=== PATIENT | female | born 1995 | race American Indian/Alaskan Native ===

== ENCOUNTER 2017-10-02 17:26 | Inpatient (IN) | payer OTHER ==
[2017-10-02 17:40] VITALS: BMI 29.7
--- NOTE | 2017-10-02 18:01 | OBHP ---
Datetime: 10/02/2017 17:56 IP Adm Impression: Term, intrauterine IP Chief Complaint Other: vaginal pain Admit Comment, IP Provider: at 38+weeks came with c/o vaginal pain started in am,no hedache or blurry vision, no vb, lof+fm obhx primi pmh den med pnv all nkda psh den soch de ve /-2 a/p at 38+weeks vaginal pain r/o pih pih work up cnt meet and efm bp monitior npo/ivf cont close observa Pelvic Type - PN: Adequate Extremities - PN: Normal Abdomen - PN: Normal Back - PN: Normal Breast - PN: Normal Lungs - PN: Normal Heart - PN: Normal Thyroid - PN: Normal Neurologic - PN: Normal HEENT - PN: Normal General - PN: Normal FHR - Baseline A Provider: 130 Contraction Comments Provider: irrg Vital Signs Provider: Reviewed; Within Normal Limits NICHD Variability Prov Fetus A: Moderate 6-25bpm NICHD Accel Fetus A IP Provider: 15X15 FHR Category Provider Fetus A: Category I Dilatation, Provider: 1 Effacement, Provider: 60 Station, Provider: -3 Genitourinary Exam: Normal DTRs - PN: Normal
[2017-10-02] MEDS: Lactated Ringer's 1,000 ML IV SCH (18:04)
[2017-10-02 18:19] LABS: HEMOGLOBIN 8.9 g/dL (11.0-16.0); MEAN CELL VOLUME 76.5 fL (81.0-99.0); MEAN CORPUSCULAR HEMOGLOBIN 24.8 pg (27.0-31.0); MEAN CORPUSCULAR HGB CONC 32.5 g/dL (33.0-37.0); MEAN PLATELET VOLUME 9.7 fL (7.2-11.7); RBC 3.57 Mil/uL (3.80-5.20); RED CELL DISTRIBUTION WIDTH 16.6 % (11.5-14.5); WHITE BLOOD COUNT 9.9 K/uL (4.8-10.8)
[2017-10-02 18:26] LABS: PROTHROMBIN TIME 10.6 SECONDS (9.7-12.2)
[2017-10-02 18:26] LABS: SQUAMOUS EPITHIAL 7 /hpf (0-5); URINE BACTERIA FEW (<OCC); URINE BILIRUBIN NEGATIVE (NEGATIVE); URINE BLOOD NEGATIVE (NEGATIVE); URINE CLARITY Hazy (Clear); URINE COLOR Yellow (YELLOW); URINE GLUCOSE (UA) NORMAL (Normal); URINE LEUKOCYTE ESTERASE 3+ Leu/uL (Negative); URINE PROTEIN 1+ mg/dL (NEGATIVE); URINE UROBILINOGEN NORMAL mg/dL (0.2-1.0)
[2017-10-02 18:52] LABS: ALB/GLOB RATIO 1.1 (1.0-2.1); ALBUMIN 3.5 g/dL (3.5-5.0); ALT/SGPT 17 U/L (9-52); AST/SGOT 28 U/L (14-36); BILIRUBIN,DIRECT 0.4 mg/dL (0.0-0.4); BLOOD UREA NITROGEN 5 mg/dL (7-17); CALCIUM 8.8 mg/dl (8.6-10.4); GFR AFRICAN-AMERICAN > 60; GFR NON-AFRICAN AMERICAN > 60
--- NOTE | 2017-10-02 19:03 | OBADHP ---
Datetime: 10/02/2017 17:56 IP Chief Complaint Other: vaginal pain Admit Comment, IP Provider: at 38+weeks came with c/o vaginal pain started in am,no hedache or blurry vision, no vb, lof+fm obhx primi pmh den med pnv all nkda psh den soch de ve /-2 a/p at 38+weeks vaginal pain r/o pih pih work up cnt meet and efm bp monitior npo/ivf cont close observa blood work anemia ua 1+pr plan admit to l_d npo/ivf labs pain manag cervidil cont meet and efm anticipate Pelvic Type - PN: Adequate Extremities - PN: Normal Abdomen - PN: Normal Back - PN: Normal Breast - PN: Normal Lungs - PN: Normal Heart - PN: Normal Thyroid - PN: Normal Neurologic - PN: Normal HEENT - PN: Normal General - PN: Normal FHR - Baseline A Provider: 130 Contraction Comments Provider: irrg IP Hx Assessment: The History has been Reviewed and is Current Vital Signs Provider: Reviewed; Within Normal Limits NICHD Variability Prov Fetus A: Moderate 6-25bpm NICHD Accel Fetus A IP Provider: [id number] FHR Category Provider Fetus A: Category I Dilatation, Provider: 1 Effacement, Provider: 60 Station, Provider: -3 Genitourinary Exam: Normal DTRs - PN: Normal IP Adm Impression: Term, intrauterine IP Admit Plan: Admit to unit; Initiate labor induction protocol
--- NOTE | 2017-10-02 20:14 | OBPN ---
Datetime: 10/02/2017 20:11 IP Procedures: Sterile Vag Exam IP Progress Plan: Cervical Ripening FHR - Baseline A Provider: 120 IP Progress Note Comment: pt was examined at bed side ve 1/60/-3 cervidil placed r/a/b disc Vital Signs Provider: Reviewed; Within Normal Limits NICHD Accel Fetus A IP Provider: 15X15 FHR Category Provider Fetus A: Category I NICHD Variability Prov Fetus A: Moderate 6-25bpm Dilatation, Provider: 1 Effacement, Provider: 60 Station, Provider: -3 Datetime: 10/02/2017 17:56 Contraction Comments Provider: irrg
[2017-10-03] MEDS ORDERED: Nalbuphine 20 mg/ml Inj (1 ml) ONE ×2 (00:24→06:34)
[2017-10-03] MEDS: Nalbuphine 20 mg/ml Inj (1 ml) IVP PRN ×2 (00:29→06:41)
[2017-10-03] MEDS ORDERED: Nalbuphine 20 mg/ml Inj (1 ml) IVP PRN (06:45)
[2017-10-03] MEDS ORDERED: Oxytocin 30 UNIT 30 UNITS/500 ML BAG IV PRN (09:54)
[2017-10-03] MEDS ORDERED: Oxytocin 30 UNIT 30 UNITS/500 ML BAG IV ONE (09:58)
[2017-10-03] MEDS: Lactated Ringer's 1,000 ML IV SCH ×2 (09:59→14:02)
--- NOTE | 2017-10-03 10:01 | OBPN ---
Datetime: 10/03/2017 09:56 IP Progress Impression: Gest. HTN/PreEclampsia/Eclampsia IP Progress Plan: Induction Membranes, Provider: Intact FHR - Baseline A Provider: 120 Presentation-Admit: Vertex IP Progress Note Comment: Pt seen @8am - no c/o h/a, scotomata, va disturbances, ruq pain/midpepig p ain. +crampimng 12/18. denies srom i: preeclamp 38.5 wk p: cervidel removed pt seen again @ 9:50 states pain is very mild 1-2/10 p: begin pit. d/w pt. Dilatation, Provider: 2-3 Effacement, Provider: 50 Station, Provider: -2 NICHD Decel Fetus A IP Provider: None
[2017-10-03] MEDS ORDERED: Bupivacaine HCl/FentaNYL Cit 100 ML EPI ONE ×2 (13:14→20:20)
--- NOTE | 2017-10-03 18:58 | OBPN ---
Datetime: 10/03/2017 18:40 IP Progress Plan: Induction Membranes, Provider: Ruptured Amniotic Fluid Color, Provider: Clear FHR - Baseline A Provider: 120 IP Progress Note Comment: s: comfortable /w epidural; no c/o pit @ 14mU p: arom, clear Vital Signs Provider: Reviewed NICHD Accel Fetus A IP Provider: [id number] FHR Category Provider Fetus A: Category I NICHD Variability Prov Fetus A: Moderate 6-25bpm NICHD Decel Fetus A IP Provider: None (Annotations: Data stored by CPN on behalf of user)
--- NOTE | 2017-10-03 21:02 | OBPN ---
Datetime: 10/03/2017 20:43 IP Progress Plan: Induction FHR - Baseline A Provider: 130 Presentation-Admit: Vertex IP Progress Note Comment: s: no c/o i induction for mild preeclampsia p: continue pitocin Vital Signs Provider: Reviewed NICHD Accel Fetus A IP Provider: [id number] FHR Category Provider Fetus A: Category I NICHD Variability Prov Fetus A: Moderate 6-25bpm Dilatation, Provider: 4 Effacement, Provider: 80-90 Station, Provider: -2 NICHD Decel Fetus A IP Provider: None (Annotations: Data stored by CPN on behalf of user)
[2017-10-03] MEDS ORDERED: Lidocaine 2% Inj (20ml) ONE (23:02)
--- NOTE | 2017-10-04 00:41 | OBDS ---
DELIVERY PERSONNEL Delivery Doctor: Melly Saenz MD Certified Appliance Service Technician: Holly Tovar RN Anesthesiologist: Dr Vaughn MATERNAL INFORMATION Delivery Anesthesia: Epidural Estimated Blood Loss (ml): 300 Provider Comments: ap dx: induction for preeclampsia @ 38.5wks pp dx: same proced: ; repair of 2nd degree vag lacerationw with 2-0 chromic and 2-0 vicryl ob: orossetos anesth: epidural findings: viable male 7lb7oz; 9_9 remained in br w/ pt ebl 300cc LABOR SUMMARY EDC: 10/12/2017 00:00 No. Babies in Womb: 1 Attempted: No LABOR INFORMATION Reason for Induction: Gest. HTN/PreEclampsia/Eclampsia Onset of Labor: 10/03/2017 08:09 Complete Dilatation: 10/03/2017 22:30 Cervical Ripening Agents: Cervidil (Annotations: PLACED INTRAVAGINALLY BY DR BRYANT) Oxytocin: Induction Group B Beta Strep: Negative Steroids Given: None Reason Steroids Not Administered: Not Applicable MEMBRANES Membranes Rupture Method: Artificial Rupture of Membranes: 10/03/2017 18:35 Length of Rupture (hrs): 5.58 Amniotic Fluid Color: Clear Amniotic Fluid Amount: Small Amniotic Fluid Odor: None STAGES OF LABOR Stage 1 hrs: 14 Stage 1 min: 21 Stage 2 hrs: 1 Stage 2 min: 40 Stage 3 hrs: 0 Stage 3 min: 6 Total Time in Labor hrs: 16 Total Time in Labor min: 7 VAGINAL DELIVERY Episiotomy: None Laceration Extension: Second Degree Laceration Type: Vaginal Laceration Repair: Yes Laceration Repair Note: repair of 2nd degree vag lacerationw with 2-0 chromic and 2-0 vicry Initial Vag Sponge Count: 11 Final Vag Sponge Count: 11 Initial Vag Sharps Count: 2 Final Vag Sharps Count: 2 Sponge Count Correct: Yes Sharps Count Correct: Yes BABY A INFORMATION Delivery Date/Time: 10/04/2017 00:10 Method of Delivery: Vaginal Born in Route : No : N/A Forceps: N/A Vacuum Extraction: N/A Shoulder Dystocia : No SHOULDER DYSTOCIA BABY A Delivery Date/Time: 10/04/2017 00:10 PRESENTATION/POSITION BABY A Presentation: Cephalic Cephalic Presentation: Vertex Vertex Position: Left Occipital Anterior Breech Presentation: N/A PLACENTA INFORMATION BABY A Placenta Delivery Time : 10/04/2017 00:16 Placenta Method of Delivery: Expressed Placenta Status: Delivered SCORES BABY A Heart Rate 1 min: >100 bpm Resp Effort 1 min: Good Cry Reflex Irritability 1 min: Cough or Sneeze or Pulls Away Muscle Tone 1 min: Active Motion Color 1 min: Body Caney, Extremities Blue SCORE 1 MIN: 9 Heart Rate 5 min: >100 bpm Resp Effort 5 min: Good Cry Reflex Irritability 5 min: Cough or Sneeze or Pulls Away Muscle Tone 5 min: Active Motion Color 5 min: Body Caney, Extremities Blue Resuscitation Effort 5 min: N/A SCORE 5 MIN: 9 INFANT INFORMATION BABY A Gestational Age at Delivery: 38.5 Gestational Status: Term Infant Outcome : Liveborn Infant Condition : Stable Infant Sex: Male IDENTIFICATION/MEDS BABY A ID Band Number: [id number] ID Band Location: Left Leg; Left Arm Sensor Applied: Yes Sensor Number: [id number] Sensor Location : Cord Clamp WEIGHT/LENGTH BABY A Infant Birthweight (gms): 3365 Infant Weight (lb): 7 Weight (oz): 7 Infant Length Inches: 19.00 Length cms: 48.3 CORD INFORMATION BABY A No. Cord Vessels: 3 Nuchal Cord : N/A Cord Blood Taken: Yes Suction: Mouth; Nose
[2017-10-04] MEDS ORDERED: Oxytocin 30 UNIT 30 UNITS/500 ML BAG IV SCH (01:00)
[2017-10-04] MEDS: Oxycodone/Acetaminophen 5/325 mg Tab PO PRN ×2 (03:40→11:24)
--- NOTE | 2017-10-04 08:59 | OBPPN ---
Datetime: 10/04/2017 07:20 PP Pain Prov: Within normal limits PP Nausea Prov: Denies PP Flatus Prov: No PP BM Prov: No PP Breasts Prov: Normal PP Heart Prov: Normal PP Lungs Prov: Normal PP Abdomen/Uterus Prov: Normal PP Lochia Prov: Normal PP Vulva/Perineum Prov: Normal PP CVA Tenderness Prov: Normal PP Extremities Prov: Normal PP C/S Incision Prov: Not Applicable PP Progress Prov: Normal PP Impression Prov: Normal progression PP Plan Prov: Continue present management PP Progress Note Prov: Patient seen and examined at bedside. Patient reports feeling sore, but denie s pain. Patient denies difficulties and reports her baby has latched. Patient denies fl atus and bowel movements at this time. Patient otherwise has no complaints and feels well. pt christian a ny heavy bleeding, fever, chills, nause, vomtiing, cp, sob VSS PE see above Plan/Assessment: s/p PPD#1 with chronic asympotmic anemia - Continue Motrin prn for pain - Continue senokot - Start Feosol 325mg PO daily - Monitor Hgb/Hct, am cbc - Continue current management -enoucrage breast feedign and ambulation Nayana Aaron, PGY1 Vital Signs Provider PP: Reviewed
[2017-10-04] MEDS: Multiple Vitamins Tab PO SCH (11:18)
[2017-10-04 13:57] LABS: BASO # 0.1 K/uL (0.0-0.2); BASO % 0.5 % (0.0-2.0); EOS # 0.1 K/uL (0.0-0.7); EOS % 0.6 % (0.0-4.0); HEMOGLOBIN 7.7 g/dL (11.0-16.0); LYMPH # 1.2 K/uL (1.0-4.3); LYMPH % 7.7 % (20.0-40.0); MEAN CORPUSCULAR HEMOGLOBIN 24.5 pg (27.0-31.0); MEAN CORPUSCULAR HGB CONC 32.2 g/dL (33.0-37.0); MONO % 6.3 % (0.0-10.0); NEUT # 13.6 K/uL (1.8-7.0); NEUT % 84.9 % (50.0-75.0); PLATELET COUNT 150 K/uL (130-400); RBC 3.12 Mil/uL (3.80-5.20)
[2017-10-04 14:08] LABS: WHITE BLOOD COUNT 16.1 K/uL (4.8-10.8)
[2017-10-04 14:22] LABS: ALBUMIN 2.8 g/dL (3.5-5.0); ALT/SGPT 20 U/L (9-52); AST/SGOT 36 U/L (14-36); BLOOD UREA NITROGEN 7 mg/dL (7-17); CALCIUM 8.2 mg/dl (8.6-10.4); GFR AFRICAN-AMERICAN > 60; GFR NON-AFRICAN AMERICAN > 60
[2017-10-04 14:28] LABS: ANISOCYTOSIS SLIGHT; BANDS 2 % (0-2); EOSINOPHIL 2 % (0-4); LYMPHOCYTE 7 % (20-40); MONOCYTE 5 % (0-10); NEUTROPHIL 84 % (50-75); PLATELET ESTIMATE NORMAL (NORMAL); TOTAL CELLS COUNTED 100
[2017-10-04 14:29] LABS: HYPOCHROMIC MODERATE; LARGE PLATELETS PRESENT; OVALOCYTES SLIGHT
[2017-10-04] MEDS: Hydrocortisone 2.5% Rectal Cream(30 gm) PR SCH (17:51)
[2017-10-05 00:18] VITALS: O2SAT 98
--- NOTE | 2017-10-05 08:08 | OBPPN ---
Datetime: 10/05/2017 07:28 PP Pain Prov: Within normal limits PP Nausea Prov: Denies PP Flatus Prov: Yes PP BM Prov: Yes PP Breasts Prov: Normal PP Heart Prov: Normal PP Lungs Prov: Normal PP Abdomen/Uterus Prov: Normal PP Lochia Prov: Not Done PP Vulva/Perineum Prov: Not Done PP CVA Tenderness Prov: Not Done PP Extremities Prov: Normal PP Progress Prov: Normal PP Impression Prov: Normal progression PP Plan Prov: Continue present management PP Progress Note Prov: Patient was seen and examined at bedside in no acute distress. Patient report s mild soreness, but states she feels well. Patient states she has some discomfort due to hemorrhoids . Patient admits to passing flatus and having a normal BM. Patient otherwise has no complaints. VSS PE: see above Plan/Assessment: s/p PPD#1with chronic asymptomatic chronic anemia - Continue Motrin prn for pain - Continue Senokot - Continue Feosol 325mg PO daily - Monitor Hgb/Hct - Encourage breast feeding and ambulation - Continue current management. Nayana Aaron, PGY1
[2017-10-05 08:18] LABS: BASO # 0.1 K/uL (0.0-0.2); BASO % 0.4 % (0.0-2.0); EOS # 0.2 K/uL (0.0-0.7); HEMOGLOBIN 7.6 g/dL (11.0-16.0); LYMPH % 12.7 % (20.0-40.0); MEAN CORPUSCULAR HEMOGLOBIN 24.5 pg (27.0-31.0); MEAN CORPUSCULAR HGB CONC 32.2 g/dL (33.0-37.0); MEAN PLATELET VOLUME 9.4 fL (7.2-11.7); MONO % 6.6 % (0.0-10.0); NEUT # 12.5 K/uL (1.8-7.0); NEUT % 79.3 % (50.0-75.0); RBC 3.09 Mil/uL (3.80-5.20); RED CELL DISTRIBUTION WIDTH 16.8 % (11.5-14.5); WHITE BLOOD COUNT 15.7 K/uL (4.8-10.8)
[2017-10-05] MEDS: Multiple Vitamins Tab PO SCH (09:11)
[2017-10-05] MEDS: Hydrocortisone 2.5% Rectal Cream(30 gm) PR SCH ×2 (09:11→17:27)
[2017-10-06 08:06] LABS: BASO # 0.1 K/uL (0.0-0.2); BASO % 0.5 % (0.0-2.0); EOS # 0.3 K/uL (0.0-0.7); HEMOGLOBIN 7.3 g/dL (11.0-16.0); LYMPH # 2.2 K/uL (1.0-4.3); MEAN CELL VOLUME 76.3 fL (81.0-99.0); MEAN CORPUSCULAR HGB CONC 31.5 g/dL (33.0-37.0); MEAN PLATELET VOLUME 10.1 fL (7.2-11.7); MONO # 0.8 K/uL (0.0-0.8); NEUT # 9.8 K/uL (1.8-7.0); NEUT % 74.5 % (50.0-75.0); NRBC % 0.1 % (0.0-2.0); RBC 3.02 Mil/uL (3.80-5.20); RED CELL DISTRIBUTION WIDTH 16.9 % (11.5-14.5); WHITE BLOOD COUNT 13.2 K/uL (4.8-10.8)
[2017-10-06] MEDS: Hydrocortisone 2.5% Rectal Cream(30 gm) PR SCH (10:13)
[2017-10-06] MEDS: Multiple Vitamins Tab PO SCH (10:15)
[2017-10-06] MEDS ORDERED: Influenza Vaccine 60 mcg/0.5 mL SYR (4YR UP) IM ONE (10:56)
[2017-10-06 11:14] VITALS: BP 127/77; PULSE 80; TEMP 97.4
[2017-10-06 12:31] VITALS: RESP 18
--- NOTE | 2017-10-06 12:53 | OBPPN ---
Datetime: 10/06/2017 07:08 PP Nausea Prov: Denies PP Flatus Prov: Yes PP BM Prov: Yes PP Breasts Prov: Normal PP Heart Prov: Normal PP Lungs Prov: Normal PP Abdomen/Uterus Prov: Normal PP Lochia Prov: Not Done PP Vulva/Perineum Prov: Not Done PP CVA Tenderness Prov: Not Done PP Extremities Prov: Abnormal PP Progress Prov: Abnormal PP Comments Phys Exam Prov: Extremities: pitting edema b/l; denies pain : has not breast fed since yesterday; patient states baby prefers the bottle. PP Impression Prov: Normal progression PP Plan Prov: Continue present management PP Progress Note Prov: Patient was seen and examined at bedside in no acute distress. Patient report s discomfort due to hemorrhoids; otherwise, patient denies complaints. Patient states she is passing gas and had a normal BM yesterday. Patient states baby prefers the bottle and has not breastfed since yesterday. VSS PE: see above Plan/Assessment: s/p PPD#3 w/asymptomatic chronic anemia - Continue Motrin prn for pain - Continue senokot for constipation - Continue Anusol for hemorrhoids - Continue Feosol 325mg PO daily for anemia - F/U AM CBC - Encourage breast feeding and ambulation - Continue current management. Nayana Aaron, PGY1 pt seen and examine agree wth above dc home rto 6 weeks
--- NOTE | 2017-10-06 12:53 | OBDCSUM ---
Datetime: 10/06/2017 11:25 Discharged to, Provider: Home Follow up at, Provider: [facility] Disch Instr Activity: Normal activity; May Shower Disch Instr Diet: Regular Discharge Diet restrict Prov: none Discharge Instructions, Provider: Routine instructions given Discharge Diagnosis, Provider: Term Delivered Discharge Time: 10/06/2017 11:31 Follow up in weeks, Provider: 11/15/17 Disch Referrals: None Contraception discussed, Prov: Yes Disch Activity Restrictions: No exercising; No lifting; No driving; No sexual activity; Nothing in v agina - Chacra, tampons, douche Contraception after Delivery: Not Planning to Use Datetime: 10/06/2017 08:58 Discharged to, Provider: Home Follow up at, Provider: [facility] [place] Disch Instr Activity: Normal activity Disch Instr Diet: Regular Discharge Instructions, Provider: Routine instructions given Discharge Diagnosis, Provider: Term Delivered Discharge Time: 10/06/2017 11:25 Follow up in weeks, Provider: 6 weeks Disch Referrals: None Contraception discussed, Prov: Yes Disch Activity Restrictions: No sexual activity; Nothing in vagina - Chacra, tampons, douche Discharge Comment, Provider: Patient is stable for discharge to home. Patient is to follow up with h er OB in 6 weeks for visit. Please make an appointment with the baby's composition floor layer within 1 week. Pelvic rest for 6 weeks-- no sex, no tampons, no douching. Please continue taking the following medications: 1. Feosol 325mg PO daily for anemia 2. Anusol- apply topically to the affected area twice a day for hemorrhoids 3. Senokot- take as needed for constipation Patient may take Advil as needed for pain. If having fevers, heavy vaginal bleeding, severe abdominal pain, return to the Emergency Room. Contraception after Delivery: Not Planning to Use
== END 2017-10-06 14:00 | disposition home or self-care (01) | DRG 372 ==
LOC: C.EROB 17:26 → C.4D 18:59 → C.4M 10-04 02:15
PROVIDERS: ADMIT Obstetrics & Gynecology; ATTEND Obstetrics & Gynecology
PROC: 10E0XZZ Delivery of Products of Conception, External Approach (ICD-10-PCS; principal; 2017-10-04)
PROC: 0KQM0ZZ Repair Perineum Muscle, Open Approach (ICD-10-PCS; 2017-10-04)
PROC: 3E0P7VZ Introduction of Hormone into Female Reproductive, Via Natural or Artificial Opening (ICD-10-PCS; 2017-10-04)
PROC: 3E033VJ Introduction of Other Hormone into Peripheral Vein, Percutaneous Approach (ICD-10-PCS; 2017-10-04)
PROC: 10907ZC Drainage of Amniotic Fluid, Therapeutic from Products of Conception, Via Natural or Artificial Opening (ICD-10-PCS; 2017-10-04)
DX: O14.94 Unspecified pre-eclampsia, complicating childbirth (principal); O99.02 Anemia complicating childbirth; Z3A.38 38 weeks gestation of pregnancy; Z37.0 Single live birth; O70.1 Second degree perineal laceration during delivery; O13.4 Gestational [pregnancy-induced] hypertension without significant proteinuria, complicating childbirth; O15.1 Eclampsia complicating labor; O22.43 Hemorrhoids in pregnancy, third trimester